=== PATIENT | male | born 1970 | race Caucasian/White ===

== ENCOUNTER → 2018-10-13 | Outpatient (CLI) | payer OTHER, SELFPAY ==
[2018-10-13 10:09] LABS: Absolute Lymphocyte Count 1.74 X10^3/ul (0.83-4.51); Basophil# 0.04 X10^3/uL; Basophil% 0.7 % (0-1); Eosinophil# 0.27 X10^3/uL; Eosinophils% 4.8 % (0-5); Hemoglobin 14.1 g/dl (13.0-16.5); Lymphocyte # 1.74 X10^3/ul (4.0); Lymphocyte % 30.7 % (19-41); Mean Corp Hgb Conc 35.3 g/gl (32-36); Mean Corpuscular Hgb 31.1 pg (27.0-32.0); Mean Corpuscular Volume 88.1 fL (80-94); Mean Platelet Vol. 11.9 fl (6.2-12.0); Monocyte# 0.56 X10^3/uL; Monocyte% 9.9 % (0-10); Neutrophil # 3.04 X10^3/uL (2.7-7.7); Neutrophil % 53.7 % (47-70); Platelet Count 201 K/mm3 (150-450); RBC Distribution Width CV 12.6 % (11.6-14.6); RBC Distribution Width SD 40.5 fl (35.1-43.9); Red Blood Count 4.54 M/mm3 (4.6-6.2); White Blood Count 5.7 K/mm3 (4.4-11.0)
[2018-10-13 10:19] LABS: POSITIVE COUNT NO; POSITIVE DIFFERENTIAL NO; POSITIVE MORPHOLOGY NO
[2018-10-13 10:27] LABS: Color, Urine Yellow (Yellow); Glucose, Dipstick Normal (Normal); Ketone-Dipstick 15 mg/dl (Negative); Leukocyte Esterase-Dipstick Negative /ul (Negative); Nitrite-Dipstick Negative (Negative); Occult Blood-Urine Negative /ul (Negative); Protein-Dipstick Negative (Negative); Urine Bilirubin Dipstick Negative (Negative); Urine Clarity Clear (Clear); Urine Urobilinogen Normal (Normal)
[2018-10-13 10:33] LABS: ALB/GLOB Ratio 1.2 RATIO (0.9-2.4); AST(SGOT) 25 U/L (15-37); Alanine Aminotransfer ALT/SGPT 49 U/L (16-61); Albumin, Serum 4.2 g/dL (3.2-5.0); Alkaline Phosphatase 78 U/L (45-117); Anion Gap 7 (5-15); BUN 22 mg/dL (7-18); BUN/Creat Ratio 21.6 RATIO (10-20); Calcium,Total 9.2 mg/dL (8.5-10.1); Chloride 104 mmol/L (98-107); Cholesterol 166 mg/dL (200); Creatinine, Serum 1.02 mg/dL (0.70-1.30); EST Glomerular Filtration Rate 83 mL/min (>60); Est Glom Filt Rate - Afr Amer 100 mL/min (>60); Globulin 3.6 g/dL (2.2-4.2); Glucose 94 mg/dL (74-106); High Density Lipoprotein 36 mg/dL; Potassium 4.2 mmol/L (3.5-5.1); Protein, Total 7.8 g/dL (6.4-8.2); Sodium Level 139 mmol/L (136-145); Triglycerides 179 mg/dL; Very Low Density Lipoprotein 36 mg/dL (5-40)
== END | disposition home or self-care (01) ==
LOC: MTLAB 07:54
PROVIDERS: Family Provider Family Medicine; PCP Family Medicine; Referring Provider Family Medicine; Visit Provider Family Medicine
DX: Z00.00 Encounter for general adult medical examination without abnormal findings (principal); K21.9 Gastro-esophageal reflux disease without esophagitis; E78.5 Hyperlipidemia, unspecified; I10 Essential (primary) hypertension
CPT/HCPCS: 36415; 80053; 80061; 81002; 85025

== ENCOUNTER 2018-11-28 15:41 | Emergency (ER) | payer OTHER, SELFPAY ==
[2018-11-28 15:42] VITALS: BP 151/89; PULSE 88; RESP 18; TEMP 36.1; O2SAT 94; BMI 27.4
--- NOTE | 2018-11-28 15:58 | ED.VISSUMM ---
- ER Visit Summary Date of Service: 11/28/18 Chief Complaint: Upper lip laceration History of Present Illness: The patient is a 48 M who presents with a laceration to his upper lip that occurred 1 hour prior to arrival. Patient states he was hit in the upper lip with a chisel. Patient denies any loss of consciousness. Patient states the bleeding is been persistent. Patient denies any paresthesias or weakness. Patient states the pain is dull. Patient states his last tetanus was approximately 5 years ago. Patient denies any other injuries. Physical Examination: Vital signs are stable. Patient is afebrile. Patient is in no acute distress. Skin is warm dry. There is a 2 cm full-thickness linear laceration to the left lateral aspect of the upper lip on the external surface. There is also laceration to the left upper gingiva. There is no active bleeding noted. There are no foreign bodies noted. Teeth are intact. There is no tenderness over the teeth. Oral mucosa is pink and moist. Oropharynx is clear. Neck is supple. Trachea is midline. There is no JVD noted. Cranial nerves II through XII are intact. There are no focal motor or sensory deficits noted. Emergency Department Course and Treatment: Facial hair was trimmed with scissors. The wound was cleaned and irrigated with copious amounts of normal saline. The wound was anesthetized 1% plain lidocaine locally. The wound was closed with 3 simple interrupted #6-0 nylon sutures under sterile technique. Patient tolerated procedure well. Bacitracin dressing was applied. Patient was instructed to avoid salty foods and spicy foods. Patient was instructed to follow-up with his primary care physician in 3 to 5 days for wound recheck and suture removal. Patient understood and was agreeable with the plan. All questions were answered. Disposition: Discharge home Impression: Upper lip laceration This note was generated with [email or web address] dictation software. It may contain incorrect words, spelling, and punctuation that were not noted in review of the chart prior to signing ED Disposition - Plan for ED Patient: Disposition: Home or Assisted Living Diagnosis: Laceration of lip without complication Instructions: LACERATION, Face (Suture or Tape) Referrals: Richard Manley MD [Primary Care Provider] - 3-5 Days suture removal
[2018-11-28] MEDS: BACITRACIN 15 GM Tube 1 APPLIC TOPICAL (17:52)
== END 2018-11-28 17:54 | disposition home or self-care (01) ==
LOC: ED 16:30
PROVIDERS: Emergency Provider Emergency Medicine; Family Provider Family Medicine; PCP Family Medicine
DX: S01.511A Laceration without foreign body of lip, initial encounter (principal); S01.512A Laceration without foreign body of oral cavity, initial encounter; W22.8XXA Striking against or struck by other objects, initial encounter; Y93.9 Activity, unspecified; Y92.9 Unspecified place or not applicable; K21.9 Gastro-esophageal reflux disease without esophagitis; I10 Essential (primary) hypertension; Z79.899 Other long term (current) drug therapy
CPT/HCPCS: 12011; 99283

== ENCOUNTER → 2019-06-05 07:50 | Outpatient (CLI) | payer OTHER, SELFPAY ==
[2019-06-05 10:27] LABS: AST(SGOT) 22 U/L (15-37); Alanine Aminotransfer ALT/SGPT 54 U/L (16-61); Albumin, Serum 4.2 g/dL (3.2-5.0); Alkaline Phosphatase 76 U/L (45-117); Cholesterol 187 mg/dL (200); Globulin 3.5 g/dL (2.2-4.2); High Density Lipoprotein 43 mg/dL; Protein, Total 7.7 g/dL (6.4-8.2); Triglycerides 153 mg/dL; Very Low Density Lipoprotein 31 mg/dL (5-40)
== END ==
PROVIDERS: Family Provider Family Medicine; PCP Family Medicine; Referring Provider Family Medicine; Visit Provider Family Medicine
DX: E78.5 Hyperlipidemia, unspecified (principal)
CPT/HCPCS: 36415; 80061; 80076

== ENCOUNTER → 2021-12-15 | Outpatient (CLI) | payer OTHER, SELFPAY ==
[2021-12-15 10:21] LABS: Absolute Lymphocyte Count 1.75 X10^3/uL (0.83-4.51); Basophil# 0.04 X10^3/uL; Basophil% 0.6 % (0-1); Eosinophil# 0.44 X10^3/uL; Eosinophils% 6.3 % (0-5); Hematocrit 41.5 % (40-54); Hemoglobin 14.1 g/dL (13.0-16.5); Lymphocyte # 1.75 X10^3/ul (0.83-4.51); Lymphocyte % 24.9 % (19-41); Mean Corpuscular Volume 88.3 fL (80-94); Mean Platelet Vol. 12.7 fl (6.2-12.0); Monocyte# 0.77 X10^3/uL; NRBC Flagged by Analyzer 0 % (0-5); Neutrophil # 4.02 X10^3/uL (2.7-7.7); Neutrophil % 57.1 % (47-70); Platelet Count 187 K/mm3 (150-450); RBC Distribution Width CV 12.2 % (11.6-14.6); RBC Distribution Width SD 39.7 fl (35.1-43.9)
[2021-12-15 11:03] LABS: ALB/GLOB Ratio 1.1 RATIO (0.9-2.4); AST(SGOT) 21 U/L (15-37); Alanine Aminotransfer ALT/SGPT 35 U/L (16-61); Albumin, Serum 3.9 g/dL (3.2-5.0); Alkaline Phosphatase 67 U/L (45-117); Anion Gap 7 (5-15); BUN 17 mg/dL (7-18); BUN/Creat Ratio 15.6 RATIO (10-20); Chloride 106 mmol/L (98-107); Cholesterol 162 mg/dL (200); Creatinine, Serum 1.09 mg/dL (0.70-1.30); EST Glomerular Filtration Rate 76 mL/min (>60); Est Glom Filt Rate - Afr Amer 92 mL/min (>60); Globulin 3.4 g/dL (2.2-4.2); Glucose 96 mg/dL (74-106); High Density Lipoprotein 42 mg/dL; PSA,Total - Annual Screen 0.58 ng/mL (0.00-4.00); Potassium 3.9 mmol/L (3.5-5.1); Protein, Total 7.3 g/dL (6.4-8.2); Sodium Level 140 mmol/L (136-145); Triglycerides 114 mg/dL; Very Low Density Lipoprotein 23 mg/dL (5-40)
== END | disposition home or self-care (01) ==
LOC: MTLAB 07:36
PROVIDERS: PCP Family Medicine; Referring Provider Family Medicine; Visit Provider Family Medicine
DX: Z00.00 Encounter for general adult medical examination without abnormal findings (principal); E78.5 Hyperlipidemia, unspecified; I10 Essential (primary) hypertension; Z12.5 Encounter for screening for malignant neoplasm of prostate
CPT/HCPCS: 36415; 80053; 80061; 84153; 85025; G0103

== ENCOUNTER → 2023-03-02 | Outpatient (CLI) | payer OTHER, SELFPAY ==
[2023-03-02 12:46] LABS: Magnesium 2.3 mg/dL (1.6-2.6); Thyroid Stim Hormone (TSH) 1.29 uIU/mL (0.358-3.74)
== END | disposition home or self-care (01) ==
LOC: LAB 11:32
PROVIDERS: PCP Family Medicine; Referring Provider Internal Medicine Cardiovascular Disease; Visit Provider Internal Medicine Cardiovascular Disease
DX: I49.1 Atrial premature depolarization (principal); R00.2 Palpitations; I10 Essential (primary) hypertension
CPT/HCPCS: 36415; 83735; 84443

== ENCOUNTER → 2023-03-25 | Outpatient (CLI) | payer OTHER, SELFPAY ==
--- NOTE | 2023-03-25 12:30 | ECHOCS_ITS ---
Reason For Study: PACs Procedure This was a 2D Doppler, Color Flow transthoracic echocardiogram. Contrast injection was performed. Exam performed in department. Left Ventricle Normal size and thickness. The left ventricular ejection fraction is 65 %. Right Ventricle Normal right ventricle. Atria The left and right atria are normal. Mitral Valve Trivial mitral valve insufficiency. Tricuspid Valve Normal pulmonary artery pressure. Mild tricuspid valve insufficiency. Aortic Valve Trisinus/trileaflet aortic valve. Pulmonic Valve The pulmonic valve is not well visualized. Trivial pulmonic valve insufficiency. Great Vessels Normal sized aortic root. Pericardium/Pleural No pericardial effusion. Medication Diluted definity 2.5ml given slow IV push to enhance endocardial definition. MMode/2D Measurements & Calculations LVIDd: 5.1 cm IVSd: 1.0 cm Ao root diam: 2.7 cm LVIDs: 3.2 cm LVPWd: 0.91 cm RVDd: 3.6 cm FS: 36.4 % LAV(MOD-bp): 43.8 ml LVAd ap4: 28.2 cm2 SV(MOD-sp4): 56.0 ml LAV(MOD-bp) Indexed: 21.3 ml/m2 LVLd ap4: 7.7 cm LAV(MOD-sp2): 47.7 ml EDV(MOD-sp4): 84.4 ml LAV(MOD-sp4): 33.4 ml EDV(sp4-el): 87.3 ml LVAs ap4: 14.3 cm2 LVLs ap4: 6.3 cm ESV(MOD-sp4): 28.4 ml ESV(sp4-el): 27.5 ml EF(MOD-sp4): 66.3 % EF(sp4-el): 68.5 % SV(sp4-el): 59.8 ml LA A4 area: 16.0 cm2 LA dimension(2D): 3.7 cm RA A4 area: 12.1 cm2 TAPSE: 1.9 cm Doppler Measurements & Calculations MV E max eddie: 87.3 cm/sec Lat Peak E' Eddie: 13.9 cm/sec Med Peak E' Eddie: 13.3 cm/sec E/E' lat: 6.3 E/E' med: 6.6 Ao V2 max: 121.1 cm/sec LV V1 max: 109.6 cm/sec PA V2 max: 97.4 cm/sec Ao max P.9 mmHg LV V1 max P.9 mmHg Ao V2 mean: 91.3 cm/sec Ao mean P.6 mmHg Ao V2 VTI: 18.7 cm TR max eddie: 217.5 cm/sec TR max P.9 mmHg ECHO/Echo Complete W/ Contrast Interpretation Summary The left ventricular ejection fraction is 65 %. Mild tricuspid valve insufficiency. 5 x 3 cm cystic structure noted in the suprasternal region.. Recommend CT scan of the neck and upper chest for further evaluation. Ordering Physician: Anna Walter Referring Physician: Richard Manley Performed By: Kelli Plasencia RDCS, RVT
== END | disposition home or self-care (01) ==
PROVIDERS: PCP Family Medicine; Referring Provider Internal Medicine Cardiovascular Disease; Visit Provider Internal Medicine Cardiovascular Disease
DX: I49.1 Atrial premature depolarization (principal); R00.2 Palpitations
CPT/HCPCS: 93225; 93226; 93306; Q9957; A4216; C8929

== ENCOUNTER → 2023-04-13 | Outpatient (CLI) | payer OTHER, SELFPAY ==
--- NOTE | 2023-04-18 12:20 | STRESSREP ---
Stress Test Report Date: 04/13/2023 Procedure: Pharmacologic stress nuclear imaging study Indications: Atrial fibrillation Consent: Per the patient Procedure: The patient underwent pharmacologic (Regadenoson 0.4mg ) evaluation with a peak heart rate of 153 beats per minute (91%predicted maximal heart rate) and a peak blood pressure of 170/112 mmHg. The baseline ECG demonstrated atrial fibrillation. The peak pharmacologic ECG demonstrated no diagnostic ischemic changes. There were no cardiac dysrhythmias pretest, during pharmacologic infusion, or recovery. There was no complaint of chest discomfort during pharmacologic infusion or recovery. The patient was injected with 14.2 millicuries of technetium 99m Cardiolite and subsequently rest SPECT Cardiolite nuclear imaging was obtained in the horizontal long, vertical long, and short axis views. The patient underwent pharmacologic (Regadenoson) evaluation. The patient was injected with 44.5 millicuries of technetium 99m Cardiolite and subsequently stress SPECT Cardiolite nuclear imaging was obtained in the horizontal long, vertical long, and short axis views. A gated Cardiolite study at peak stress was obtained. The examination was stopped secondary to completion of protocol. Rest and stress SPECT Cardiolite nuclear imaging status post realignment, normalization, and attenuation correction demonstrate no fixed or reversible perfusion defects. There is end systolic thickening and brightening. The gated Cardiolite study demonstrates myocardial thickening and inward wall motion. The reported LVEF is 69%. Impression: 1. Pharmacologic (Regadenoson) evaluation 2. Peak pharmacologic ECG with no ischemic changes. 3. Baseline atrial fibrillation. 5. Rest and stress SPECT Cardiolite nuclear imaging demonstrate relative uniform tracer uptake and myocardial perfusion appearing within normal limits. 6. The gated Cardiolite study reports an LVEF of 69%. This note was generated with [employer] software. It may contain incorrect words, spelling, and punctuation that were not noted in checking the note before signing.
== END | disposition home or self-care (01) ==
LOC: CVS 06:32
PROVIDERS: PCP Family Medicine; Referring Provider Internal Medicine Cardiovascular Disease; Visit Provider Internal Medicine Cardiovascular Disease
DX: R00.2 Palpitations (principal); I48.91 Unspecified atrial fibrillation
CPT/HCPCS: 78452; 93017; A4216; J2785

== ENCOUNTER → 2023-04-15 | Outpatient (CLI) | payer OTHER, SELFPAY ==
--- NOTE | 2023-04-15 06:56 | CT_ITS ---
STUDY: CT CHEST WITH CONTRAST REASON FOR EXAM: Male, 52 years old. Suprasternal cystic structure on echocardiogram -- Suprasternal cystic structure on echocardiogram RADIATION DOSAGE (If Supplied By Facility): CTDIvol = ( 17.98 ) mGy, DLP = ( 710.14 ) mGycm TECHNIQUE: Transaxial imaging was performed following intravenous administration of IV 100mL Isovue-370. Multiplanar coronal and sagittal images were reformatted. Individualized dose optimization techniques were used for this CT. COMPARISON: No relevant priors. FINDINGS: CHEST There is a 4.9 cm by 5.4 cm x 4.8 cm cystic structure arising from the lower pole of the left lobe of the thyroid gland. This extends into the substernal space. Correlation with ultrasound is recommended. Small benign-appearing bilateral axillary lymph nodes. The lungs are normal. There is no demonstrated pleural abnormality. There are calcifications of the coronary arteries. Normal mediastinum. Normal hilar regions. Normal unenhanced pulmonary arteries. Normal aorta arch and descending thoracic aorta. There are multi-level degenerative changes of the thoracic spine. There is no demonstrated abnormality of the visualized upper abdomen. CT/Chest WITH Contrast IMPRESSION: 4.9 cm x 5.4 cm x 4.8 cm cystic structure arising from the lower pole of the left lobe of the thyroid gland as described. Correlation with ultrasound is recommended for further evaluation. Electronically Signed: Yan Hood MD at 14:08 EST ,
[2023-04-15 07:19] LABS: EGFR FINGERSTICK > 60.0000 mL/min (>60)
== END | disposition home or self-care (01) ==
LOC: CT 06:55
PROVIDERS: PCP Family Medicine; Referring Provider Nurse Practitioner Family; Visit Provider Nurse Practitioner Family
DX: R93.1 Abnormal findings on diagnostic imaging of heart and coronary circulation (principal)
CPT/HCPCS: 71260; Q9967

== ENCOUNTER → 2023-05-02 | Outpatient (CLI) | payer OTHER, SELFPAY ==
--- NOTE | 2023-05-02 12:38 | US_ITS ---
EXAM: US SOFT TISSUES HEAD AND NECK, THYROID CLINICAL INDICATION: Abnormal CT scan TECHNIQUE: Greyscale and color doppler imaging was performed of the thyroid gland. COMPARISON: No relevant prior studies available. FINDINGS: LEFT THYROID LOBE: Likely adjacent to rather than within the left thyroid lobe, there is a cyst measuring up to 6.3 cm in maximal diameter correlating with a multilobulated cystic lesion on comparison CT. The left thyroid lobe measures 4.5 x 2.0 x 1.4 cm. There is a 4 mm spongiform nodule within the left thyroid lobe. This nodule is spongiform. TI-RADS points: 0. TI-RADS category: TR1. This nodule is benign and no FNA or follow-up is necessary. Homogeneous echotexture with normal vascularity. RIGHT THYROID LOBE: The right thyroid lobe measures 5.5 x 1.8 x 1.8 cm. Within the right thyroid lobe, there is an 8 mm nodule. This nodule is solid or almost completely solid, hypoechoic, [id number], smoothly marginated and contains no echogenic foci. TI-RADS points: 4. TI-RADS category: TR4. This nodule is moderately suspicious but no FNA or follow-up is necessary given the small size of this nodule. There is a 7 mm spongiform nodule in the right thyroid lobe. This nodule is spongiform. TI-RADS points: 0. TI-RADS category: TR1. This nodule is benign and no FNA or follow-up is necessary. ISTHMUS: The thyroid isthmus measures 0.5 cm. No thyroid nodules are present. US/Thyroid IMPRESSION: 1. Likely adjacent to rather than within the left thyroid lobe, there is a cyst measuring up to 6.3 cm in maximal diameter correlating with a multilobulated cystic lesion on comparison CT. This is nonspecific, perhaps a macrocystic lymphatic malformation. Consider tissue sampling. If indeed arising from the thyroid, this would be a large simple cyst and no follow-up would be indicated. 2. Multiple thyroid nodules. No FNA or follow-up is indicated due to the size of these lesions and/or the benign imaging characteristics. See details above. Electronically Signed: Derik Lindsey DO at 22:26 EST ,
== END | disposition home or self-care (01) ==
LOC: US 12:36
PROVIDERS: PCP Family Medicine; Referring Provider Nurse Practitioner Family; Visit Provider Nurse Practitioner Family
DX: R93.89 Abnormal findings on diagnostic imaging of other specified body structures (principal); R93.1 Abnormal findings on diagnostic imaging of heart and coronary circulation
CPT/HCPCS: 10021; 76536

== ENCOUNTER → 2023-05-17 | Outpatient (CLI) | payer OTHER, SELFPAY ==
--- NOTE | 2023-05-17 | IMM_PTH ---
PATIENT: REJI OCAMPO LOC: [facility] U#:[id number] AGE/SX: 52/M ROOM: RE05/17/[address]: Dr. Abraham Virk MD : 1970 BED: DIS: 05/17/2023 SPEC #: [id number] RECD: 05/19/23 13:42 STATUS: ANKUR REQ #: [id number] DIONE: 05/17/23 00:[address]: Abraham Virk DEPT: IMMUNOHISTOCHEMISTRY RECD BY: Dede Esteves ENTERED: 05/19/23 13:44 SP TYPE: IMMUNO OTHR DR: Dr. Richard Manley MD Tissues: CYST Procedures: Synapto (add) BCL-2 (add) BCL-6 (add) CD10 (add) CD138 (add) CD20 (add) CD45 (add) CD5 (add) CD56 (add) CD79A (add) CHROMO (add) CK8 (add) CYCLIN (add) KI-67 (add) Vimentin (add) Pankeratin (add) CD3 (initial) PHYSICIAN & [address] [address] SPECIMEN INFORMATION: Tissue Source: Left cervical cyst Clinical Info: FNA of left cervical cyst Specimen Number: [id number] CPT code: 49807, 76387 x16 METHODOLOGY: Deparaffinized sections of prefer/formalin-fixed tissue or PAP/DQ stained slides are incubated with monoclonal/polyclonal antibodies/oligonucleotide probes. Localization is made via biotin free immunoperoxidase method. Appropriate controls are performed and reacted as expected. Results on target cell population are indicated in the following table: RESULTS: ANTIBODY / CLONE RESULT CD3 (PS1) positive CD5 (SP10) positive CD20 (L26) negative CD45 (RP2/18) positive CD79a (11E3) positive, a few cells CD10 (56C6) negative BCL-2 (bcl-2/100/D5) negative BCL-6 (OC520U/A8) negative Cyclin D1/BCL-1 (SP4) negative Ki-67 (30-9) negative AE1-3 (AE1/AE3/PCK26) negative CK8 (29zpyiW92) negative Vimentin (V9) positive Chromo (LK2H10) negative Synapto (polyclonal) negative CD56 (123C3.D5) negative CD138 (B-A38) negative These tests were developed and their performance characteristics determined by [facility]. They may not have been cleared or approved by the U.S. Food and Drug Administration. The FDA has determined that such clearance or approval is not necessary. The above immunohistochemical/dualISH markers are ordered and reviewed by the Pathologist. INTERPRETATION: Left cervical cyst, fine needle aspiration: Lymph node tissue. See comment. CATARINO:alex 05/24/2023 Comment: The specimen consists of small lymphocytes, predominantly T-cell in nature.
--- NOTE | 2023-05-17 | FLU_PTH ---
PATIENT: REJI OCAMPO LOC: [facility] U#:[id number] AGE/SX: 52/M ROOM: RE05/17/[address]: Dr. Abraham Virk MD : 1970 BED: DIS: 05/17/2023 SPEC #: [id number] RECD: 05/17/23 15:20 STATUS: ANKUR PHILLIPS #: [id number] DIONE: 05/17/23 00:[address]: Abraham Virk DEPT: CYTOLOGY RECD BY: Bang Moore ENTERED: 05/18/23 13:55 SP TYPE: Fluid OTHR DR: Dr. Richard Manley MD Tissues: CYST Procedures: Special Stain Group II Surgery Specimen Level IV Cytospin Fluid HEADER OPERATION: Fine needle aspiration of left cervical cyst PRE-OP DIAGNOSIS: Left cervical cyst TISSUE SUBMITTED: Left cervical cyst DIAGNOSIS CYTOLOGY Left cervical cyst, fine needle aspiration (cytospin and cell block): Lymph node tissue. See comment. SJ:alex 05/24/2023 COMMENT The specimen consists small lymphocytes, T-cell in nature. If there is high suspicion of lymphoma, incisional or excisional biopsy, including flow cytometry studies of the lesion is suggested for definite classification of the lesion. Immunohistochemistry ([id number]) supports the above diagnosis. Case has been reviewed in consultation with Dr. Powers who concurs with the above diagnosis. IDC:AM CYTOLOGY STUDY Slides are reviewed. CYTOLOGY GROSS Received is 10 ml of yellow cyst fluid labeled with the patient's name and and designated per the requisition as left cervical cyst. Submitted for cytology preparation including cell block. / alex 05/18/2023 TC:5 CPT: 01626, 52553
== END | disposition home or self-care (01) ==
LOC: LABSPEC 05-18 09:55
PROVIDERS: PCP Family Medicine; Visit Provider Surgery
DX: Q18.0 Sinus, fistula and cyst of branchial cleft (principal)
CPT/HCPCS: 88108; 88305; 88313; 88341; 88342

== ENCOUNTER → 2023-06-15 | Outpatient (CLI) | payer OTHER, SELFPAY ==
--- NOTE | 2023-06-15 | FLU_PTH ---
PATHOLOGY RESULTS PATIENT: REJI OCAMPO LOC: [facility]#:[id number] AGE/SX: 52/M ROOM: RE06/15/[address]: Dr. Abraham Virk MD : 1970 BED: DIS: 06/15/2023 SPEC #: [id number] RECD: 06/15/23 12:56 STATUS: ANKUR JACQUELINE #: [id number] DIONE: 06/15/23 00:[address]: Abraham Virk DEPT: CYTOLOGY RECD BY: Bang Moore ENTERED: 06/15/23 12:56 SP TYPE: Fluid OTHR DR: Dr. Richard Manley MD Tissues: CYST Procedures: Special Stain Group II Surgery Specimen Level IV Cytospin Fluid HEADER OPERATION: Fine needle aspiration of left cervical cyst PRE-OP DIAGNOSIS: Left cervical cyst TISSUE SUBMITTED: Left cervical cyst fluid DIAGNOSIS CYTOLOGY Fine needle aspiration, left cervical cyst (cytospin and cell block): Polytypic (benign) lymphocytes are present. See comment. AM:alex 06/16/2023 COMMENT Immunohistochemistry ([id number]) supports the above diagnosis. Flow cytometry study from [place] shows no evidence of a B-cell or T-cell lymphoma. The complete report is viewable in EMR. Reference is made to the patient's previous left cervical cyst, FNA ([id number]) in which lymph node tissue was identified. Case has been reviewed in consultation with Dr. Fairbanks who concurs with the above diagnosis. IDC:SJ CYTOLOGY STUDY Slides are reviewed. CYTOLOGY GROSS Received is 12 ml of yellow cloudy fluid labeled with the patient's name and and designated per the requisition as left cervical cyst. Submitted for cytology preparation including cell block. / alex 06/15/2023 TC:5 CPT: 87882, 41017
--- NOTE | 2023-06-15 | IMM_PTH ---
PATHOLOGY RESULTS PATIENT: REJI OCAMPO LOC: [facility] U#:[id number] AGE/SX: 52/M ROOM: RE06/15/[address]: Dr. Abraham Virk MD : 1970 BED: DIS: 06/15/2023 SPEC #: [id number] RECD: 06/16/23 12:38 STATUS: ANKUR REQ #: [id number] DIONE: 06/15/23 00:[address]: Abraham Virk DEPT: IMMUNOHISTOCHEMISTRY RECD BY: Eduarda Garcia ENTERED: 06/16/23 12:43 SP TYPE: IMMUNO OTHR DR: Dr. Richard Manley MD Tissues: CYST Procedures: BCL-2 (add) BCL-6 (add) CD10 (add) CD138 (add) CD15 (add) CD20 (add) CD23 (add) CD3 (add) CD30 (add) CD43 (add) CD45 (add) CD5 (add) CD79A (add) CYCLIN (add) KAPPA (add) KI-67 (add) LAMBDA (add) MUM1 (add) C-MYC (add) Pankeratin (initial) PHYSICIAN & [place] [id number] SPECIMEN INFORMATION: Tissue Source: Left cervical cyst fluid Clinical Info: Left cervical cyst Specimen Number: [id number] CPT code: 59812, 67564 x19 METHODOLOGY: Deparaffinized sections of prefer/formalin-fixed tissue or PAP/DQ stained slides are incubated with monoclonal/polyclonal antibodies/oligonucleotide probes. Localization is made via biotin free immunoperoxidase method. Appropriate controls are performed and reacted as expected. Results on target cell population are indicated in the following table: RESULTS: ANTIBODY / CLONE RESULT AE1-3 (AE1/AE3/PCK26) negative CD3 (PS1) positive CD5 (SP10) positive CD10 (56C6) positive CD15 (MMA) negative CD20 (L26) positive CD23 (1B12) negative CD30 (Jeffery-H2) negative CD43 (L60) positive CD45 (RP2/18) positive CD79a (11E3) positive CD138 (B-A38) negative BCL-2 (bcl-2/100/D5) positive BCL-6 (HC884Z/A8) negative Cyclin D1/BCL-1 (SP4) negative MUM1 (MRQ-43) negative C-MYC (Y69) negative [place] (polyclonal) negative Lambda (polyclonal) negative Ki-67 (30-9) negative, rare These tests were developed and their performance characteristics determined by [facility]. They may not have been cleared or approved by the U.S. Food and Drug Administration. The FDA has determined that such clearance or approval is not necessary. The above immunohistochemical/dualISH markers are ordered and reviewed by the Pathologist. INTERPRETATION: Fine needle aspiration, left cervical cyst (cell block): Polytypic lymphoid cell population. AM:alex 06/17/2023 Case has been reviewed in consultation with Dr. Fairbanks who concurs with the above diagnosis. IDC:SJ
== END | disposition home or self-care (01) ==
LOC: LABSPEC 09:41
PROVIDERS: PCP Family Medicine; Visit Provider Surgery
DX: Q18.0 Sinus, fistula and cyst of branchial cleft (principal)
CPT/HCPCS: 88108; 88304; 88305; 88313; 88341; 88342